=== PATIENT | male | born 1930 | race Caucasian/White ===

== ENCOUNTER 2018-07-11 14:51 | Emergency (ER) | payer OTHER ==
[~2018-07-11] VITALS: Ht 182.9 cm; Wt 79.4 kg
[~2018-07-11 14:51] MED LIST: ADVAIR 500-501 EACH INH; ADVAIR DISKUS 21 DSK INH; ADVAIR DISKUS1 UNIT INH; ALBUTEROL 3 ML3 ML INH; ALBUTEROL SULF0.5 ML; ALBUTEROL SULF0.5 ML INH; ALBUTEROL SULFAT3 M1 INH; ALBUTEROL SULFAT3 M1 INH/SOL; ATROVENT 0.02% INH; AUGMENTIN 875 M1 TAB PO; AUGMENTIN 875-1 EACH PO; CARDIZEM CD180 M1 PO; CEPHALEXIN500 MG PO; CIPRO 500MG TA500 MG PO; CIPRO500 M1 PO; COLCHICINE0.6 M2 PO; COLCHICINE0.6 MG PO; COUMADIN 3 MG TA3 MG PO; COUMADIN PO; COUMADIN1 M1 PO; DIGOX0.125 MG PO; DILTIAZEM HCL180 MG PO; DOCUSATE SODIU100 MG PO; FUROSEMIDE20 MG PO; IPRAT-ALBUT 0.5-3 ML INH; KEFLEX500 MG PO; LASIX20 MG PO; LIDODERM 5% PAT1 PAT EXT; METOPROLOL SUC100 M1 PO; METOPROLOL SUC100 MG PO; OXACILLIN SODIUM2 G1 IV; PREDNISONE 20MG20 MG PO; PREDNISONE 5 MG5 MG PO; PREDNISONE10 M2 PO; PREDNISONE10 MG PO; PRILOSEC 20MG C20 MG PO; PROBIOTIC1 EACH PO; ROXICODONE5 MG PO; TOPROL XL 50MG50 MG PO; TOPROL XL25 M1 PO; TRIMETHOPRIM W/1 TAB PO; TYLENOL TAB 32325 MG PO; VITAMIN C500 M3 PO; WARFARIN SODIUM3 MG PO; ZINC SULFATE 2220 MG PO; [UNRECOGNIZED DRUG - CODE] IV
--- NOTE | 2018-07-11 16:14 | RADIOLOGY REPORT ---
EXAMINATION: XR CHEST CLINICAL INFORMATION: Cough and fever. COMPARISON: Chest x-ray 07/04/2018 TECHNIQUE: 2 views of the chest were obtained. FINDINGS: Status post median sternotomy for cardiac valve replacement. The heart size is normal. The cardiac and the mediastinal contours are normal. There is persistent blunting the left costophrenic angle due to a small left pleural effusion unchanged since chest x-ray 07/05/2018. There is no pulmonary vascular congestion. The pulmonary vascular congestion seen on exam of 07/04/2018 has resolved. There is no focal consolidation. There is chronic pleural parenchymal calcifications seen over the mid chest. Multilevel degenerative spondylosis of dorsal spine with disc height narrowing and plate spurring of the vertebrae is present. There are surgical clips in the upper abdomen. IMPRESSION: 1. Persistent blunting of left costophrenic angle consistent with a small left pleural effusion. 2. Interval resolution of pulmonary vascular congestion since prior study of 07/04/2018. 3. No focal consolidation. No infiltrate of lung.
[2018-07-11 16:21] LABS: ABSOLUTE BASOPHIL COUNT 0 /CUMM (0.0-0.2); ABSOLUTE EOSINOPHIL COUNT 0.7 /CUMM (0.0-0.7); ABSOLUTE GRANULOCYTE CT 8.5 /CUMM (1.4-6.5); ABSOLUTE LYMPH COUNT 0.5 /CUMM (1.2-3.4); ABSOLUTE MONOCYTE COUNT 1.4 /CUMM (0.10-0.60); BASOPHIL % 0.1 % (0.0-2.0); EOSINOPHIL % 6.3 % (0-5); HEMATOCRIT 39.4 % (42-52); MEAN CORPUSCULAR HGB 32.1 PG (27.0-31.0); MEAN CORPUSCULAR VOLUME 97.3 FL (80.0-94.0); PLATELET COUNT 235 /CUMM (130-400); RED BLOOD CELL CT 4.05 /CUMM (4.70-6.10); WHITE BLOOD CELL COUNT 11.2 /CUMM (4.8-10.8)
--- NOTE | 2018-07-11 18:11 | ED GENERAL ADULT ---
History of Present Illness General Chief Complaint: General Adult Stated Complaint: FLU SYMPTOMS Source: patient Exam Limitations: no limitations Vital Signs & Intake/Output Vital Signs & Intake/Output Vital Signs Date Time Temp Pulse Resp B/P B/P Pulse O2 O2 Flow FiO2 Mean Ox Delivery Rate 07/11 1950 97.8 89 20 129/75 99 Room Air 07/11 1855 98.2 90 18 132/74 99 07/11 1803 97.7 92 18 126/72 99 Room Air 07/11 1516 97.9 101 16 95 Room Air ED Intake and Output 07/12 0000 07/11 1200 Intake Total 0 Output Total Balance 0 Intake, Oral 0 Patient 175 lb Weight Weight Reported by Patient Measurement Method Allergies Coded Allergies: NO KNOWN ALLERGIES (UNKNOWN 05/28/17) Reconcile Medications Amoxicillin/Potassium Clav (Augmentin 875-125 Tablet) 875 MG-125 MG TABLET 1 TAB PO BID Cellulitis Ciprofloxacin HCl (Cipro) 500 MG TABLET 1 MG PO BID Cellulitis Ciprofloxacin HCl (Cipro) 500 MG TABLET 1 TAB PO BID BRONCHITIS Diltiazem HCl (Cardizem Cd) 180 MG CAP.ER.24H 1 CAP PO DAILY HEART/BP ( Reported) Fluticasone/Salmeterol (Advair 500-50 Diskus) 500 MCG-50 MCG/DOSE BLST.W.DEV 1 PUF INH BID COPD (Reported) Ipratropium/Albuterol Sulfate (Iprat-Albut 0.5-3(2.5) MG/3 Ml) 0.5 MG-3 MG (2.5 MG BASE)/3 ML AMPUL.NEB 1 VIAL INH Q4H COPD (Reported) Metoprolol Succ XL (Toprol XL) 25 MG TAB 1 TAB PO DAILY HEART/BP (Reported) Prednisone 10 MG TABLET 1 TAB PO DAILY COPD (Reported) Prednisone 20 MG TABLET 1 TAB PO BID BRONCHITIS TAKE TWO TABLETS DAILY FOR FIVE DAYS THEN RESTART YOUR USUAL DOSE OF PREDNISONE Warfarin Sodium (Coumadin) 1 MG TABLET 1.5 TAB PO DAILY BLOOD THINNER ( Reported) Please dose Coumadin as per your INR. Please discuss with your mobile home technician about dosing of your Coumadin, while you are on antibiotics. Triage Note: 87 Y/O MALE C/O "BEING SICK" FOR 3-4 WEEKS. STATES HE HAS BEEN URINATING OFTEN, HAS NO APPETITE ("I COULD LOOK AT IT AND I DONT WANT IT"), COUGH WITH "FROTHY WHITE SPUTUM, SOMETIMES YELLOW", AND GENERAL MALAISE WITH BODY ACHES. PT DENIES FEVERS. DENIES PAIN. SAT 95% RA. PT STATES HE HAS COPD AND IS NORMALLY SOB, DENIES FEELING MORE SOB THAN USUAL. AFEBRILE. Triage Nurses Notes Reviewed? yes HPI: 87-year-old man with multiple medical problems significant for coronary artery disease, COPD not on home oxygen, and aortic stenosis status post bioprosthetic replacement seen for evaluation of feeling ill with productive cough. Patient reports that over the past month he has not been feeling well. He has had a cough that is more persistent in the later day characterizes white/frothy/ yellow and somewhat stringy. He contacted his primary care provider who referred him to the [facility] for further evaluation. He does admit to chills, shortness of breath, nonbloody brown watery diarrhea, occipital headache, loss of appetite. Patient is followed by licensing representative Dr. Nowak whom sent out a sputum culture sometime last week that demonstrated growth of Pseudomonas, Klebsiella, and Enterobacter. Patient used a nebulizer treatment at home that mildly improved his symptoms. He otherwise denies any fever, nausea, vomiting, chest pain, or abdominal pain. (Vaibhav Cheung MD) Past History Travel History Traveled to [place] past 21 day No Medical History Any Pertinent Medical History? 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 No (Vaibhav Cheung MD) Review of Systems Review of Systems Constitutional: Reports: see HPI. (Vaibhav Cheung MD) Physical Exam Physical Exam General Appearance: well developed/nourished, no apparent distress, alert, awake , comfortable Comments: General - well developed, chronically ill-appearing elderly man in no acute distress HEENT - NCAT, PERRL, EOMI, anicteric sclera, chronic right eyelid droop Neck- Supple, no JVD/HJR, no bruits, trachea midline, thyroid normal Cardio -2/6 systolic ejection murmur at right upper sternal border; irregularly irregular Resp -diffuse wheezing (right >left) without crackles, good air movement GI - Soft, nontender, nondistended, bowel sounds present Neuro - Awake and alert, CN II - XII grossly intact Extremities - No edema, pulses intact Core Measures ACS in differential dx? No CVA/TIA Diagnosis: No Sepsis Present: No Sepsis Focused Exam Completed? No (Skye MERCER,Vaibhav) Progress Differential Diagnoses I considered the following diagnoses in my evaluation of the patient: URI, bronchitis, pneumonia, COPD exacerbation, influenza, viral syndrome Plan of Care: Orders Procedure Date/time Status Add-on Test (ER Only) 07/11 1520 Active TROPONIN LEVEL 07/11 1518 Complete COMPREHENSIVE METABOLIC PANEL 07/11 1518 Complete CBC WITHOUT DIFFERENTIAL 07/11 1518 Complete B-TYPE NATRIURETIC PEP (BNP) 07/11 1518 Complete EKG 07/11 1518 Active Laboratory Tests 07/11/ 1609: Anion Gap 8, Estimated GFR 48 L, BUN/Creatinine Ratio 16.4, Glucose 91, Calcium 8.9, Total Bilirubin 1.2, AST 16 L, ALT 22, Alkaline Phosphatase 93, Troponin I < 0.01, Gjh-N-Ivukqmznnce Pept 3870 H, Total Protein 5.9 L, Albumin 3.1 L, Globulin 2.8, Albumin/Globulin Ratio 1.1, CBC w Diff NO MAN DIFF REQ, RBC 4.05 L, MCV 97.3 H, MCH 32.1 H, MCHC 33.0, RDW 16.0 H, MPV 7.0 L, Gran % 76.0 H, Lymphocytes % 4.7 L, Monocytes % 12.9 H, Eosinophils % 6.3 H, Basophils % 0.1 , Absolute Granulocytes 8.5 H, Absolute Lymphocytes 0.5 L, Absolute Monocytes 1.4 H, Absolute Eosinophils 0.7, Absolute Basophils 0 Initial ED EKG: AFIB Comments: Patient with multiple vague complaints progressively worsening over the past month now with productive cough of white frothy yellow tinged sputum and mild shortness of breath with chills. Vital signs remain within normal limits. Physical examination demonstrates a chronically ill-appearing elderly man in no acute distress with diffuse wheezing in the right lung ledbetter and somewhat in the left without crackles without any accessory respiratory muscle use. Labs including CBC and serum chemistry are significant for WBC count of 11 and creatinine of 1.4. BNP is elevated but is chronically so. Sputum culture obtained on 07/04/18 demonstrates growth of multiple organisms. These findings were discussed with patient's licensing representative Dr. Nowak whom recommended discharged home with oral ciprofloxacin and an increased dose of his chronic prednisone for 5 days. (Vaibhav Cheung MD) Departure Departure Disposition: HOME OR SELF CARE Condition: Stable Clinical Impression Primary Impression: Bronchitis Referrals: Montana Johnson MD (PCP/Family) Additional Instructions: Take ciprofloxacin and your increased prednisone dose as directed-be sure to finish these medications. Contact her licensing representative Dr. Nowak tomorrow and schedule appointment this week. Return to the ED should your symptoms worsen. Departure Forms: Customer Survey General Discharge Information Prescriptions: Current Visit Scripts Ciprofloxacin HCl (Cipro) 1 TAB PO BID #20 TAB Prednisone 1 TAB PO BID #10 TAB TAKE TWO TABLETS DAILY FOR FIVE DAYS THEN RESTART YOUR USUAL DOSE OF PREDNISONE (Vaibhav Cheung MD) PA/[employer] Co-Sign Statement Statement: ED Attending supervision documentation- x I saw and evaluated the patient. I have also reviewed all the pertinent lab results and diagnostic results. I agree with the findings and the plan of care as documented in the PA's/[employer]'s documentation. [] I have reviewed the ED Record and agree with the PA's/[employer]IL[employer]'s documentation. [] Additions or exceptions (if any) to the PAs/[employer]'s note and plan are summarized below: [] (Janes MERCER,Robin) Critical Care Note Critical Care Note Critical Care Time: non-applicable (Vaibhav Cheung MD)
[2018-07-11] MEDS ORDERED: CIPRO500 M1 PO (19:30)
[2018-07-11] MEDS ORDERED: PREDNISONE20 M1 PO (19:30)
[2018-07-11 19:50] VITALS: BP 129/75
== END 2018-07-11 19:52 ==
LOC: ERH 14:51
PROVIDERS: Physician Assistant Medical
DX: J40 Bronchitis, not specified as acute or chronic (principal); Z87.891 Personal history of nicotine dependence; I48.91 Unspecified atrial fibrillation; Q25.1 Coarctation of aorta; I10 Essential (primary) hypertension; I25.10 Atherosclerotic heart disease of native coronary artery without angina pectoris; J44.9 Chronic obstructive pulmonary disease, unspecified
CPT/HCPCS: 71046; 93005; 93010